=== PATIENT | female | born 1940 | race Caucasian/White ===

== ENCOUNTER 2016-07-05 13:56 | Emergency (ER) | payer OTHER ==
[~2016-07-05] VITALS: Ht 152.4 cm; Wt 86.6 kg
[~2016-07-05 13:56] MED LIST: Advair 250/50 Diskus IH; Dilaudid PO; Ecotrin PO; Feosol PO; Glucotrol PO; LANTUS 3 M100 UNITS/ SC; Norvasc PO; Proventil,Ventolin H IH; Requip PO; Senokot S,Pericolace PO; Urocit-K PO; Zestril,Prinivil PO; Zocor PO; Zoloft PO
[2016-07-05 15:36] LABS: EOSINOPHIL (%) 0.7 % (0-5); EOSINOPHIL COUNT 0.1 K/uL (0-0.3); HEMATOCRIT 36.1 % (36.0-46.0); IMMATURE GRANULOCYTE (%) 0.6 % (0.0-0.7); IMMATURE GRANULOCYTE COUNT 0.5 K/uL; LYMPHOCYTE COUNT 1.4 K/uL (1.0-2.8); MCH 29.2 PG (29.0-34.0); MCHC 33.8 G/DL (30.0-36.0); MCV 86.4 FL (83-99); MEAN PLAT.VOLUME 10.7 uM^3 (9.5-12.4); MONOCYTE (%) 5.2 % (3-12); MONOCYTE COUNT 0.5 K/uL (0-0.8); NEUTROPHIL (%) 77.8 % (45-76); NEUTROPHIL COUNT 6.8 K/uL (1.8-6.4); PLATELET COUNT 148 K/uL (156-360); RBC DIS.WIDTH-CV 14.1 % (11.8-14.6); RBC DIS.WIDTH-SD 43.5 % (39-53); RED BLOOD COUNT 4.18 M/uL (3.80-5.20); WHITE BLOOD COUNT 8.8 K/uL (4.1-10.2)
[2016-07-05 15:54] LABS: CHLORIDE 103 mEq/L (99-109); POTASSIUM 4.9 mEq/L (3.7-5.4); SODIUM 136 mEq/L (136-147)
[2016-07-05 15:57] LABS: GLUCOSE 321 mg/dL (70-99)
[2016-07-05 15:58] LABS: ANION GAP 13 MEQ/L (2-14)
[2016-07-05 15:59] LABS: TOTAL BILIRUBIN 0.5 mg/dL (0.0-1.0)
[2016-07-05 16:00] LABS: ALKALINE PHOSPHATASE 82 IU/L (3-129); GFR ESTIMATE (CALCULATED) 33 mL/min/
[2016-07-05 16:01] LABS: UREA NITROGEN (BUN) 20 mg/dL (9-23)
[2016-07-05 16:04] LABS: LIPASE 31 U/L (1.0-51.0); TROP-I INTERPRETATION NEGATIVE; TROPONIN-I < 0.01 ng/mL (0.0-0.30)
[2016-07-05 18:20] LABS: TROP-I INTERPRETATION NEGATIVE; TROPONIN-I < 0.01 ng/mL (0.0-0.30)
[2016-07-05 19:19] VITALS: BP 134/70
== END 2016-07-05 19:22 | disposition left against medical advice (07) ==
LOC: EME 13:56
PROVIDERS: Emergency Medicine
DX: R07.9 Chest pain, unspecified (principal); R11.0 Nausea; E11.65 Type 2 diabetes mellitus with hyperglycemia; J44.9 Chronic obstructive pulmonary disease, unspecified; I10 Essential (primary) hypertension; Z87.442 Personal history of urinary calculi; Z87.891 Personal history of nicotine dependence
CPT/HCPCS: 71020; 80053; 83690; 84484; 85025; 93005; 99281; 99285